=== PATIENT | male | born 1990 | race Caucasian/White ===

== ENCOUNTER 2016-09-15 16:51 | Emergency (ER) | payer SELFPAY ==
[~2016-09-15] VITALS: Ht 177.8 cm; Wt 100.0 kg
[2016-09-15 16:51] VITALS: BP 155/92; PULSE 109; RESP 18; TEMP 97.9; O2SAT 96
--- NOTE | 2016-09-15 19:36 | PD ---
HPI Chief Complaint: Pain: Acute or Chronic Time Seen by Provider: 19:33 Travel History International Travel<30 days: No Contact w/Intl Traveler<30days: No Traveled to known affect area: No History of Present Illness HPI Patient comes in complaining of right-sided low back pain that began approximately a week ago while sweeping at work and bending over. Patient denies any direct trauma. Patient states he felt it a little bit better however today when he is at work it again began bothering him after he bent over. Patient denies any loss or change in bowel or bladder, fevers, IV drug use, numbness or tingling anywhere, abdominal pain, nausea, vomiting, or previous episodes like this. He states he took some ibuprofen earlier today that helped some. Pain is worse certain movement. Pain is sharp stabbing-like nature of right lower back that radiates superiorly. PFSH Past Medical History Medical History: Denies Significant Hx Diminished Hearing: No Tetanus Vaccination: < 5 Years Influenza Vaccination: No Past Surgical History Surgical History: No Previous Surgery Social History Alcohol Use: Yes (SOCIALLY) Tobacco Use: Yes (1/2PPD) Substance Use: No Allergies-Medications (Allergen,Severity, Reaction): Coded Allergies: Codeine (Verified Allergy, Mild, "FAMILY HX OF ALLERGY", 09/15/16) Reported Meds & Prescriptions Reported Meds & Active Scripts Active Flexeril (Cyclobenzaprine HCl) 10 Mg Tab 10 Mg PO Q8HR PRN Naprosyn (Naproxen) 500 Mg Tab 500 Mg PO Q12HR PRN Review of Systems Except as stated in HPI: all other systems reviewed are Neg Physical Exam Narrative GENERAL: Well-developed, overly nourished, in no acute distress, and non-ill appearing. SKIN: Warm and dry. HEAD: Atraumatic. Normocephalic. EYES: Pupils equal and round. EOMI. No scleral icterus. No injection or drainage. ENT: No nasal bleeding or discharge. Mucous membranes pink and moist. NECK: Trachea midline. Supple. No nuclear rigidity. CARDIOVASCULAR: Dorsal pulses 2+, intact, and equal bilaterally. No pedal edema. RESPIRATORY: No accessory muscle use. No respiratory distress. MUSCULOSKELETAL: No obvious deformities. No clubbing. No cyanosis. No edema. Full range of motion. No tenderness or crepitus or midline lumbar spine. Patient reports tenderness to palpation over right lateral lumbar muscles. Straight leg test negative bilaterally. Sensation intact over bilateral first web space lower extremities. NEUROLOGICAL: Awake and alert. No obvious cranial nerve deficits. Motor grossly within normal limits. Normal speech. PSYCHIATRIC: Appropriate mood and affect; insight and judgment normal. Data Data Last Documented VS Vital Signs Date Time Temp Pulse Resp B/P Pulse Ox O2 Delivery O2 Flow Rate FiO2 09/15/16 19:26 14 09/15/16 16:51 97.9 109 155/92 96 Room Air MDM Medical Decision Making Medical Screen Exam Complete: Yes Emergency Medical Condition: Yes Differential Diagnosis Fracture, strain, contusion, other Narrative Course The patient presented complaining of back pain. There was no history of recent fall or blunt trauma. However, history elicited activity likely causing muscular strain and injury. There was no evidence to support genitourinary etiology. There is also no evidence to suggest vascular pathology such as AAA dissection. No fevers or other evidence to suspect infectious processes, abscess , osteomyelitis etc. The patients neurological exam is normal with normal motor and sensory. There is no saddle paresthesias reported and no bowel or bladder incontinence or retention. I suspect the pain is mechanical in nature. Clinical suspicion, plan of care and management was discussed with the patient. The patient was instructed to follow up with their health care provider. The patient was also instructed to return if the pain worsened, changed, or developed weakness or bowel or bladder trouble. The patient agreed with plan. Patient in no obvious distress upon re-evaluation. Patient was asked if they wanted to speak to my attending, which the patient did not wish to do at this time. Any questions/concerns in reference to patient diagnosis/condition discussed and clarified prior to patient's discharge. Reinforced sheer importance of close follow up with patient's primary physician or primary care clinic. Instructed patient to return to ED immediately, if symptoms return/ worsen. Pt showed understanding of above instructions. Further instructions and recommendations were detailed in discharge paperwork. Pt ambulated without difficulty out of ED at discharge. Diagnosis Primary Impression: Low back strain Qualified Code: S39.012A - Low back strain, initial encounter Referrals: Sigifredo Syed MD Patient Instructions: General Instructions, Low Back Strain (ED) Additional Instructions: Follow-up with your primary care physician and/or orthopedics in 3-5 days for reevaluation. Take all medication as prescribed. Return to the emergency department if symptoms get worse. Med/Other Pt SpecificInfo: Prescription(s) given Scripts Cyclobenzaprine (Flexeril)10 Mg Tab10 Mg PO Q8HR PRN (MUSCLE PAIN) #15 TAB Ref 0 Prov:Britney Cunningham MD 09/15/16 Naproxen (Naprosyn)500 Mg [id number] Mg PO Q12HR PRN (PAIN SCALE 1 TO 10) #14 TAB Ref 0 Prov:Britney Cunningham MD 09/15/16 Disposition: 01 DISCHARGE HOME Condition: Stable Josue Romo Sep 15, 2016 19:36
[2016-09-15] MEDS ORDERED: CYCL1TAB29 PO (19:37)
[2016-09-15] MEDS ORDERED: NAPR500 PO (19:37)
== END 2016-09-15 19:45 | disposition home or self-care (01) ==
LOC: NEPB 16:51
DX: S39.012A Strain of muscle, fascia and tendon of lower back, initial encounter (principal); F17.210 Nicotine dependence, cigarettes, uncomplicated; X50.3XXA Overexertion from repetitive movements, initial encounter; Y93.E9 Activity, other interior property and clothing maintenance; Y92.9 Unspecified place or not applicable
CPT/HCPCS: 99283

== ENCOUNTER 2016-10-12 06:18 | Inpatient (IN) | payer MEDICAID, OTHER ==
[2016-10-12] VITALS (7 sets, daily range): BP systolic 112–144; BP diastolic 53–77; PULSE 85–141; RESP 18–20; TEMP 97–98.2; O2SAT 96–98
[~2016-10-12] VITALS: Ht 177.8 cm; Wt 108.0 kg
[~2016-10-12 06:18] MED LIST: CYCL1TAB29 PO; NAPR500 PO
[2016-10-12] MEDS ORDERED: PANTOPRAZOLE SODIUM 40 MG VIAL IVP ONE (06:45)
[2016-10-12] MEDS ORDERED: HYDROmorphone HCL PF 1 MG/ML VIAL IVS ONE (06:45)
[2016-10-12] MEDS ORDERED: ONDANSETRON HCL 4 MG/2 ML VIAL IVP ONE (06:45)
[2016-10-12] MEDS ORDERED: SODIUM CHLOR 0.9% 1000 ML INJ 1,000 ML IV SCH (06:45)
--- NOTE | 2016-10-12 06:50 | PD ---
HPI Chief Complaint: GI Complaint Time Seen by Provider: 06:43 Travel History International Travel<30 days: No Contact w/Intl Traveler<30days: No Traveled to known affect area: No History of Present Illness HPI 26-year-old male complains of abdominal pain with nausea vomiting. Patient states the symptoms started 24 hours ago. Patient states the pain is cramping pain mostly severe around the right lower quadrant of the abdomen. Patient denies any pain radiation. Patient denies any back pain. Patient denies any coughing congestion. Patient denies any fever chills. Patient denies any dysuria or frequency. On a scale of 1-10 the pain is a 7. PFSH Past Medical History Medical History: Denies Significant Hx Diminished Hearing: No Tetanus Vaccination: < 5 Years Influenza Vaccination: No Social History Alcohol Use: Yes (SOCIALLY) Tobacco Use: Yes (2 CIG PER DAY) Substance Use: No Allergies-Medications (Allergen,Severity, Reaction): Coded Allergies: Codeine (Verified Allergy, Mild, "FAMILY HX OF ALLERGY", 10/12/16) Reported Meds & Prescriptions Reported Meds & Active Scripts Active Review of Systems General / Constitutional: No: Fever Eyes: No: Visual changes HENT: No: Headaches Cardiovascular: No: Chest Pain or Discomfort Respiratory: No: Shortness of Breath Gastrointestinal: Positive: Nausea, Vomiting, Abdominal Pain Genitourinary: No: Dysuria Musculoskeletal: No: Pain Skin: No Rash Neurologic: No: Weakness Psychiatric: No: Depression Endocrine: No: Polydipsia Hematologic/Lymphatic: No: Easy Bruising Physical Exam Narrative GENERAL: Well-nourished, well-developed patient. SKIN: Focused skin assessment warm/dry. HEAD: Normocephalic. EYES: No scleral icterus. No injection or drainage. NECK: Supple, trachea midline. No JVD or lymphadenopathy. CARDIOVASCULAR: Regular rate and rhythm without murmurs, gallops, or rubs. RESPIRATORY: Breath sounds equal bilaterally. No accessory muscle use. GASTROINTESTINAL: Abdomen soft, nondistended. Patient has moderate tenderness on palpation right lower quadrant of the abdomen. No rebound tenderness. No mass. MUSCULOSKELETAL: No cyanosis, or edema. BACK: Nontender without obvious deformity. No CVA tenderness. Neurologic exam normal. Data Data Last Documented VS Vital Signs Date Time Temp Pulse Resp B/P Pulse Ox O2 Delivery O2 Flow Rate FiO2 10/12/16 06:19 97.9 141 18 129/75 97 Room Air MDM Medical Decision Making Medical Screen Exam Complete: Yes Emergency Medical Condition: Yes Differential Diagnosis Differential diagnosis including gastroenteritis, gastritis, PUD, pancreatitis, cholecystitis, colitis, UTI, pyelonephritis, nephrolithiasis. Narrative Course 26-year-old male with right low quadrant abdominal pain, nausea vomiting. Normal saline solution 1 L IV bolus. Dilaudid 0.5 mg IV. Zofran 4 mg IV. Protonix 40 mg IV. Antonio Palomares MD Oct 12, 2016 06:50
[2016-10-12 07:09] LABS: AUTOMATED NEUTROPHIL # 6.8 TH/MM3 (1.8-7.7); BASOPHIL % 0.1 % (0.0-2.0); EOSINOPHIL % 0.1 % (0.0-4.0); HEMATOCRIT 44.8 % (39.0-51.0); HEMO FLAGS DIFF FINAL; LYMPH % 4.8 % (9.0-44.0); LYMPHOCYTE # 0.3 TH/MM3 (1.0-4.8); MEAN CORPUSCULAR HEMOGLOBIN 30.9 PG (27.0-34.0); MEAN CORPUSCULAR HGB CONC 35.5 % (32.0-36.0); PLATELET COUNT 192 TH/MM3 (150-450); RED BLOOD COUNT 5.16 MIL/MM3 (4.50-5.90); RED CELL DISTRIBUTION WIDTH 12.3 % (11.6-17.2); WHITE BLOOD COUNT 7.2 TH/MM3 (4.0-11.0)
[2016-10-12 07:22] LABS: APTT (PATIENT) 23.2 SEC (24.3-30.1); INTERNATIONAL NORMALIZED RATIO 1.1 RATIO; PROTHROMBIN TIME - PATIENT 11.8 SEC (9.8-11.6)
[2016-10-12 07:35] LABS: ALT (GPT) 29 U/L (12-78); ANION GAP 8 MEQ/L (5-15); AST (GOT) 12 U/L (15-37); BICARBONATE 27.7 MEQ/L (21.0-32.0); BLOOD UREA NITROGEN 11 MG/DL (7-18); CHLORIDE 102 MEQ/L (98-107); GLOMERULAR FILTRATION RATE 95 ML/MIN (>89); POTASSIUM 3.7 MEQ/L (3.5-5.1); SODIUM (NA) 138 MEQ/L (136-145)
[2016-10-12 07:37] LABS: ALKALINE PHOSPHATASE 64 U/L (45-117); TOTAL BILIRUBIN ADULT 0.9 MG/DL (0.2-1.0)
[2016-10-12] MEDS ORDERED: IOHEXOL 350 MG/ML 10 ML VIAL (for RAD DIAG) IV ONE (07:39)
--- NOTE | 2016-10-12 07:57 | RADRPT ---
EXAM DATE/TIME: 10/12/2016 07:37 [facility] COMPARISON: No previous studies available for comparison. INDICATIONS : Right side abdominal pain and vomiting IV CONTRAST: 100 cc Omnipaque 350 (iohexol) IV ORAL CONTRAST: No oral contrast ingested. RADIATION DOSE: 14.28 CTDIvol (mGy) MEDICAL HISTORY : None SURGICAL HISTORY : None. ENCOUNTER: Initial ACUITY: 1 day PAIN SCALE: 6/10 LOCATION: Right lower quadrant TECHNIQUE: Volumetric scanning of the abdomen and pelvis was performed. Using automated exposure control and ad justment of the mA and/or kV according to patient size, radiation dose was kept as low as reasonably achievable to obtain optimal diagnostic quality images. FINDINGS: LOWER LUNGS: The visualized lower lungs are clear. LIVER: Homogeneous density without lesion. There is no dilation of the biliary tree. No calcified gallston es. SPLEEN: Normal size without lesion. PANCREAS: Within normal limits. KIDNEYS: Normal in size and shape. There is no mass, stone or hydronephrosis. ADRENAL GLANDS: Within normal limits. VASCULAR: There is no aortic aneurysm. BOWEL/MESENTERY: The bowel gas pattern is within normal limits. There is dilatation of the appendix at 1.2 cm. There i s thickening of the wall the appendix was some surrounding inflammatory changes characteristic of acu te appendicitis. No free fluid or loculated fluid collections are seen at this time to indicate an ab scess. No free air is seen. The colon is unremarkable. There is stool throughout the colon. ABDOMINAL WALL: Within normal limits. RETROPERITONEUM: There is no lymphadenopathy. BLADDER: No wall thickening or mass. REPRODUCTIVE: Within normal limits. INGUINAL: There is no lymphadenopathy or hernia. MUSCULOSKELETAL: Within normal limits for patient age. CONCLUSION: Acute appendicitis. Hardik Benito MD on October 12, 2016 at 7:50 Board Certified Radiologist. This report was verified electronically.
--- NOTE | 2016-10-12 08:17 | PD ---
Physical Exam Date Seen by Provider: Oct 12, 2016 Time Seen by Provider: 08:15 Narrative 26-year-old male came to the emergency room with history of lower abdominal pain but right more than left side. This has started since 3 this morning. He was seen by the previous ER physician who ordered labs and CT scan. Case was signed out to me to follow-up on the lab and the CAT scan. White count was within normal limit but with significant left shift. Patient appears to be in moderate distress with tachycardia. He is getting 1 L of IV fluid bolus. I'll order a second liter. The CT scan report is back which is read as acute appendicitis. I put a call out for the general surgeon on-call. Awaiting for him to call back. Patient will be kept nothing by mouth. Patient has been informed regarding his test results and the future course. I also covered him with 2 g of IV cefepime. Data Data Last Documented VS Vital Signs Date Time Temp Pulse Resp B/P Pulse Ox O2 Delivery O2 Flow Rate FiO2 10/12/16 07:55 138 18 144/77 97 Nasal Cannula 2 Orders Complete Blood Count With Diff (10/12/16 06:45) Comprehensive Metabolic Panel (10/12/16 06:45) Lipase (10/12/16 06:45) Prothrombin Time / Inr (Pt) (10/12/16 06:45) Act Partial Throm Time (Ptt) (10/12/16 06:45) Urinalysis - C+S If Indicated (10/12/16 06:45) Iv Access Insert/Monitor (10/12/16 06:45) Ecg Monitoring (10/12/16 06:45) Oximetry (10/12/16 06:45) Ondansetron Inj (Zofran Inj) (10/12/16 06:45) Pantoprazole Inj (Protonix Inj) (10/12/16 06:45) Sodium Chlor 0.9% 1000 Ml Inj (Ns 1000 M (10/12/16 06:45) Hydromorphone Pf Inj (Dilaudid Pf Inj) (10/12/16 06:45) Ct Abd/Pel W Iv Contrast(Rout) (10/12/16 07:25) Iohexol 350 Inj (Omnipaque 350 Inj) (10/12/16 07:39) Sodium Chlor 0.9% 1000 Ml Inj (Ns 1000 M (10/12/16 08:30) Cefepime Inj (Maxipime Inj) (10/12/16 08:30) NPO (10/12/16 08:17) Blood Culture (10/12/16 08:18) Metronidazole 500 Mg Inj (Flagyl 500 Mg (10/12/16 08:45) Admit Order (Ed Use Only) (10/12/16 08:42) Labs Laboratory Tests Test 10/12/16 10/12/16 06:50 08:08 White Blood Count 7.2 TH/MM3 Red Blood Count 5.16 MIL/MM3 Hemoglobin 15.9 GM/DL Hematocrit 44.8 % Mean Corpuscular Volume 87.0 FL Mean Corpuscular Hemoglobin 30.9 PG Mean Corpuscular Hemoglobin 35.5 % Concent Red Cell Distribution Width 12.3 % Platelet Count 192 TH/MM3 Mean Platelet Volume 8.3 FL Neutrophils (%) (Auto) 94.0 % Lymphocytes (%) (Auto) 4.8 % Monocytes (%) (Auto) 1.0 % Eosinophils (%) (Auto) 0.1 % Basophils (%) (Auto) 0.1 % Neutrophils # (Auto) 6.8 TH/MM3 Lymphocytes # (Auto) 0.3 TH/MM3 Monocytes # (Auto) 0.1 TH/MM3 Eosinophils # (Auto) 0.0 TH/MM3 Basophils # (Auto) 0.0 TH/MM3 CBC Comment DIFF FINAL Differential Comment Prothrombin Time 11.8 SEC Prothromb Time International 1.1 RATIO Ratio Activated Partial 23.2 SEC Thromboplast Time Sodium Level 138 MEQ/L Potassium Level 3.7 MEQ/L Chloride Level 102 MEQ/L Carbon Dioxide Level 27.7 MEQ/L Anion Gap 8 MEQ/L Blood Urea Nitrogen 11 MG/DL Creatinine 0.97 MG/DL Estimat Glomerular Filtration 95 ML/MIN Rate Random Glucose 132 MG/DL Calcium Level 9.6 MG/DL Total Bilirubin 0.9 MG/DL Aspartate Amino Transf 12 U/L (AST/SGOT) Alanine Aminotransferase 29 U/L (ALT/SGPT) Alkaline Phosphatase 64 U/L Total Protein 7.6 GM/DL Albumin 4.1 GM/DL Lipase 107 U/L Urine Color YELLOW Urine Turbidity CLEAR Urine pH 5.5 Urine Specific [place] 1.050 Urine Protein TRACE mg/dL Urine Glucose (UA) NEG mg/dL Urine Ketones TRACE mg/dL Urine Occult Blood NEG Urine Nitrite NEG Urine Bilirubin NEG Urine Urobilinogen LESS THAN 2.0 MG/DL Urine Leukocyte Esterase NEG Urine RBC LESS THAN 1 /hpf Urine WBC LESS THAN 1 /hpf Urine Mucus FEW /lpf Microscopic Urinalysis Comment CULT NOT INDICATED MDM Supervised Visit with JADA: No Narrative Course 8:30 AM I spoke with Dr. Ferreira from general surgery who has accepted the patient. He will take the patient to the operating room. Physician Communication Physician Communication Dr. Ferreira Diagnosis Primary Impression: Acute appendicitis Qualified Code: K35.89 - Other acute appendicitis Additional Impressions: Tachycardia Dehydration Admitting Information Admitting Physician Requests: Admit Scripts Ciprofloxacin (Cipro)500 Mg [id number] Mg PO BID #10 TAB Ref 0 Prov:Toño Ferreira MD 10/13/16 Metronidazole (Flagyl)500 Mg [id number] Mg PO TID #15 TAB Ref 0 Prov:Toño Ferreira MD 10/13/16 Oxycodone-Acetaminophen 5-325 mg Tab1-2 Tab PO Q4H PRN (PAIN) #30 TAB Ref 0 Prov:Toño Ferreira MD 10/12/16 Alex Garduno MD Oct 12, 2016 08:17
[2016-10-12 08:28] LABS: BLOOD, URINE NEG (NEG); COMMENT (UR) CULT NOT INDICATED; CULTURE IF INDICATED CULT NOT INDICATED; GLUCOSE,URINE NEG (NEG); KETONE, URINE TRACE mg/dL (NEG); MUCUS URINE FEW /lpf (OCC); NITRITE,URINE NEG (NEG); PH, URINE 5.5 (5.0-8.5); URINE COLOR YELLOW (YELLW/STRAW)
[2016-10-12] MEDS ORDERED: SODIUM CHLOR 0.9% 1000 ML INJ 1,000 ML IV ONE ×2 (08:30→09:00)
[2016-10-12] MEDS ORDERED: CEFEPIME INJ 2,000 MG in SODIUM CHLORIDE 0.9% INJ 100 ML IV ONE (08:30)
[2016-10-12] MEDS ORDERED: metroNIDAZOLE 500 MG INJ 100 ML IV ONE (08:45)
[2016-10-12] MEDS ORDERED: MORPHINE SULFATE 4 MG/ML INJ IV PUSH ONE (09:00)
--- NOTE | 2016-10-12 09:27 | HHI.HP ---
HPI Service General Surgery Primary Care Physician No Primary Care Physician Admission Diagnosis acute appendicitis, tachycardia Chief Complaint: abdominal pain, vomiting History of Present Illness 26-year-old male presents with 36 hours of vomiting and awoke last night with severe right lower quadrant abdominal pain. He has soreness in his back on both sides. He has been significantly tachycardic in the emergency department. He had a normal white blood count but with 94% left shift. CT abdomen and pelvis was consistent with acute appendicitis. No previous abdominal surgeries. Review of Systems Constitutional: DENIES: Fever, Chills Eyes: DENIES: Eye inflammation, Eye pain Respiratory: DENIES: Cough, Wheezing Cardiovascular: DENIES: Chest pain, Syncope Gastrointestinal: COMPLAINS OF: Abdominal pain, Vomiting Musculoskeletal: DENIES: Joint Swelling, Back pain Integumentary: DENIES: Pruritus, Rash Past Family Social History Past Medical History None Past Surgical History Right wrist Reported Medications Reported Meds & Active Scripts Active Allergies: Coded Allergies: Codeine (Verified Allergy, Mild, "FAMILY HX OF ALLERGY", 10/12/16) Active Ordered Medications Current Medications Medications (Trade) Dose Ordered Sig/Yolanda Route Start Time Stop Time Status Last Admin Sodium Chloride 1,000 ml @ 999 mls/hr BOLUS ONCE IV 10/12/16 08:30 10/12/16 09:30 10/12/16 08:47 Metronidazole 100 ml @ 100 mls/hr ONCE ONCE IV 10/12/16 08:45 10/12/16 09:44 10/12/16 09:05 (NS 1000 ml Inj) 1,000 ml @ 999 mls/hr BOLUS ONCE IV 10/12/16 09:00 10/12/16 10:00 Family History Noncontributory Social History He smokes a couple of cigarettes occasionally. He smokes regularly until 1 month ago. No alcohol use. He has a baby at home. Physical Exam Vital Signs Vital Signs Date Time Temp Pulse Resp B/P Pulse Ox O2 Delivery O2 Flow Rate FiO2 10/12/16 08:59 112 20 140/74 98 Nasal Cannula 2 10/12/16 07:55 138 18 144/77 97 Nasal Cannula 2 10/12/16 07:06 18 10/12/16 06:19 97.9 141 18 129/75 97 Room Air Physical Exam GENERAL: Awake and alert. No acute distress but uncomfortable. Cooperative. HEAD: Normocephalic. Atraumatic. EYES: Pupils equal round and reactive to light bilaterally. No scleral icterus. CHEST: Lungs clear to auscultation bilaterally with no wheezing or rhonchi. No respiratory distress. CARDIOVASCULAR: Sinus tachycardia ABDOMEN: Positive Rovsing sign. Nondistended. Mild tenderness to palpation in the left lower quadrant and right upper quadrant and severe tenderness with rebound in the right lower quadrant at McBurney's point. EXTREMITIES: No cyanosis or edema. SKIN: Warm, dry, nonjaundiced. Laboratory Laboratory Tests Test 10/12/16 10/12/16 06:50 08:08 White Blood Count 7.2 Red Blood Count 5.16 Hemoglobin 15.9 Hematocrit 44.8 Mean Corpuscular Volume 87.0 Mean Corpuscular Hemoglobin 30.9 Mean Corpuscular Hemoglobin 35.5 Concent Red Cell Distribution Width 12.3 Platelet Count 192 Mean Platelet Volume 8.3 Neutrophils (%) (Auto) 94.0 Lymphocytes (%) (Auto) 4.8 Monocytes (%) (Auto) 1.0 Eosinophils (%) (Auto) 0.1 Basophils (%) (Auto) 0.1 Neutrophils # (Auto) 6.8 Lymphocytes # (Auto) 0.3 Monocytes # (Auto) 0.1 Eosinophils # (Auto) 0.0 Basophils # (Auto) 0.0 CBC Comment DIFF FINAL Differential Comment Prothrombin Time 11.8 Prothromb Time International 1.1 Ratio Activated Partial 23.2 Thromboplast Time Sodium Level 138 Potassium Level 3.7 Chloride Level 102 Carbon Dioxide Level 27.7 Anion Gap 8 Blood Urea Nitrogen 11 Creatinine 0.97 Estimat Glomerular Filtration 95 Rate Random Glucose 132 Calcium Level 9.6 Total Bilirubin 0.9 Aspartate Amino Transf 12 (AST/SGOT) Alanine Aminotransferase 29 (ALT/SGPT) Alkaline Phosphatase 64 Total Protein 7.6 Albumin 4.1 Lipase 107 Urine Color YELLOW Urine Turbidity CLEAR Urine pH 5.5 Urine Specific [place] 1.050 Urine Protein TRACE Urine Glucose (UA) NEG Urine Ketones TRACE Urine Occult Blood NEG Urine Nitrite NEG Urine Bilirubin NEG Urine Urobilinogen LESS THAN 2.0 Urine Leukocyte Esterase NEG Urine RBC LESS THAN 1 Urine WBC LESS THAN 1 Urine Mucus FEW Microscopic Urinalysis Comment CULT NOT INDICATED Date/Time Procedure Status Source Growth 10/12/16 08:52 Aerobic Blood Culture Received Blood Peripheral Pending 10/12/16 08:52 Anaerobic Blood Culture Received Blood Peripheral Pending Result Diagram: 10/12/16 0650 10/12/16 0650 Imaging Last Impressions Abdomen/Pelvis CT 10/12/16 0725 Signed Impressions: Service Date/Time: September 07:37 - CONCLUSION: Acute appendicitis. Hardik Benito MD Assessment and Plan Assessment and Plan 26-year-old male with an evaluation consistent with acute appendicitis. He is tachycardic and has received 1 L bolus. He received cefepime and Flagyl. I recommend proceed with laparoscopic possible open appendectomy. I discussed details and risks with the patient and he desires to proceed. Toño Ferreira MD Oct 12, 2016 09:27
[2016-10-12] MEDS ORDERED: BUPIVACAINE/EPINEPHRINE 0.25% PF 30 ML VIAL ONE (09:53)
[2016-10-12] MEDS ORDERED: fentaNYL CITRATE 250 MCG/5 ML AMP ONE (09:59)
[2016-10-12] MEDS ORDERED: ACETAMINOPHEN 1000 MG/100 ML VIAL IV ONE (09:59)
[2016-10-12] MEDS ORDERED: FAMOTIDINE 20 MG/2 ML VIAL ONE (10:02)
[2016-10-12] MEDS ORDERED: MIDAZOLAM HCL 2 MG/2 ML VIAL ONE (10:02)
[2016-10-12] MEDS ORDERED: DO NOT ADM ANY ANTICOAGULANT DRUGS PRN (11:14)
[2016-10-12] MEDS ORDERED: OXYC1TAB63 PO (11:14)
[2016-10-12] MEDS ORDERED: NALOXONE HCL 0.4 MG/ML AMP IV PRN (11:15)
[2016-10-12] MEDS ORDERED: diphenhydrAMINE HCL 25 MG CAP PO PRN (11:15)
[2016-10-12] MEDS ORDERED: Post-op Orders (for Pharmacy) MISC XX ONE (11:15)
[2016-10-12] MEDS ORDERED: SODIUM CHLORIDE 0.9% FLUSH 10 ML FLUSH IV FLUSH PRN (11:15)
[2016-10-12] MEDS ORDERED: MORPHINE SULFATE 4 MG/ML INJ IV PRN (11:15)
[2016-10-12] MEDS ORDERED: oxyCODONE/ACETAMINOPHEN 5 MG/325 MG TAB PO PRN (11:15)
--- NOTE | 2016-10-12 11:16 | PD.OP ---
cc: Toño Ferreira MD Operative Report Date of Surgery: Oct 12, 2016 Preoperative Diagnosis: (1) Acute appendicitis Postoperative Diagnosis: (1) Acute appendicitis Procedure: Laparoscopic appendectomy Anesthesia: GETA Surgeon: Toño Ferreira Best Worker(s): Elis CRAFT Operation and Findings: EBL: 5 cc Complications: None apparent Operative findings: Gangrenous appenditicitis. Procedure in detail: The patient was taken to the operating room placed in the supine position with left arm tucked. General endotracheal anesthesia was induced and the abdomen was prepped and draped in usual sterile fashion. Surgical timeout was performed to verify correct patient procedure and site. Perioperative antibiotics were administered as necessary. Local anesthetic was injected in the skin and subcutaneous tissue at the left lower quadrant and a 5 mm incision made. Using the 5 mm Optiview trocar with laparoscope the abdomen was directly entered. The abdomen was then insufflated to 15 mmHg with CO2 gas which the patient tolerated well. The patient was then placed in Trendelenburg position and turned slightly to the left. A 12 mm port was placed under laparoscopic visualization in the suprapubic position and a 5 mm port in the infra umbilical area. Attention was turned to the right lower quadrant and the appendix was gangrenous without obvious perforation. The mesoappendix was taken down with the Harmonic scalpel. Two #1 PDS Endoloops were placed at the base the appendix which was healthy-appearing and the appendix transected with Harmonic scalpel. It was then removed using an Endo Catch bag. The appendiceal stump was intact with no leakage. The right lower quadrant pelvis were irrigated and suctioned. There was no purulent fluid identified in the abdomen was allowed to desufflate. The fascia at the 12 mm port site was closed with a single 0 Vicryl suture. Skin closed with subcuticular Monocryl as well as Dermabond. The patient tolerated the procedure well was extubated and taken to PACU in stable condition. Toño Ferreira MD Oct 12, 2016 11:16
[2016-10-12] MEDS ORDERED: *MEPERIDINE 25 MG INJ VIAL PERIprocedural Use ONLY ONE (11:28)
[2016-10-12] MEDS ORDERED: *morphine SULFATE 8 MG/ML PERIprocedure ONLY ONE ×2 (11:55→12:08)
[2016-10-12] MEDS: LACTATED RINGER'S 1000 ML INJ 1,000 ML IV SCH ×2 (12:00→16:41)
[2016-10-12] MEDS ORDERED: PROPOFOL 200 MG/20 ML AMP IV ONE (12:00)
[2016-10-12] MEDS ORDERED: LACTATED RINGER'S 1000 ML INJ 1,000 ML IV ONE (12:00)
[2016-10-12] MEDS ORDERED: PHENYLEPH/NS 1000 MCG/10 ML SYR IV ONE (12:00)
[2016-10-12] MEDS ORDERED: ONDANSETRON HCL 4 MG/2 ML VIAL IV PUSH ONE (12:00)
[2016-10-12] MEDS ORDERED: NEOSTIGMINE 3 MG/3 ML SYR IV ONE (12:00)
[2016-10-12] MEDS: metroNIDAZOLE 500 MG INJ 100 ML IV SCH (16:40)
[2016-10-12] MEDS: SODIUM CHLORIDE 0.9% FLUSH 10 ML FLUSH IV FLUSH SCH (19:55)
[2016-10-13] VITALS (9 sets, daily range): BP systolic 119–132; BP diastolic 58–80; PULSE 60–132; RESP 16–20; TEMP 97.9–102.4; O2SAT 93–98
[2016-10-13] MEDS ORDERED: LEVOFLOXACIN 750 MG/DEXTROSE 150 ML IV ONE (00:30)
[2016-10-13] MEDS ORDERED: LACTATED RINGER'S 1000 ML INJ 1,000 ML IV ONE (00:30)
[2016-10-13] MEDS: ACETAMINOPHEN 325 MG TAB PO PRN ×2 (00:36→12:24)
[2016-10-13] MEDS: oxyCODONE/ACETAMINOPHEN 10 MG/325 MG TAB PO PRN ×3 (01:19→18:44)
[2016-10-13] MEDS: LACTATED RINGER'S 1000 ML INJ 1,000 ML IV SCH ×3 (01:20→16:15)
[2016-10-13] MEDS: metroNIDAZOLE 500 MG INJ 100 ML IV SCH ×4 (01:23→20:00)
[2016-10-13] MEDS: SODIUM CHLORIDE 0.9% FLUSH 10 ML FLUSH IV FLUSH SCH ×2 (08:14→19:59)
--- NOTE | 2016-10-13 11:30 | HHI.PR ---
Subjective Subjective Notes T 102 overnight. He has eaten regular food. Pain pretty well controlled. Objective Vitals/I&O Vital Signs Date Time Temp Pulse Resp B/P Pulse Ox O2 Delivery O2 Flow Rate FiO2 10/13/16 08:47 93 10/13/16 08:00 98.7 100 17 126/65 10/12/16 19:32 21 10/12/16 13:00 Room Air 10/12/16 12:00 2 Labs Date/Time Procedure Status Source Growth 10/12/16 08:52 Aerobic Blood Culture - Preliminary Resulted Blood Peripheral NO GROWTH IN 1 DAY 10/12/16 08:52 Anaerobic Blood Culture - Preliminary Resulted Gram Positive Cocci Radiology Last Impressions Abdomen/Pelvis CT 10/12/16 0790 Signed Impressions: Service Date/Time: September 07:37 - CONCLUSION: Acute appendicitis. Hardik Benito MD Narrative Exam NAD Abd: soft, incisional ttp, inc c/d/i A/P Assessment and Plan 26 yo M POD 1 s/p lap appy for gangrenous appendicitis. Persistent fevers overnight. Blood cxs positive. IV levaquin/flagyl. Regular diet Ambulate Anticipate d/c home tomorrow with antibiotics. Toño Ferreira MD Oct 13, 2016 11:30
[2016-10-13] MEDS ORDERED: METR-1 PO (11:31)
[2016-10-13] MEDS ORDERED: CIPR-9 PO (11:31)
[2016-10-13 21:11] LABS: MEAN CORPUSCULAR HGB CONC 36.1 % (32.0-36.0)
[2016-10-14] VITALS (7 sets, daily range): BP systolic 125–137; BP diastolic 73–84; PULSE 74–85; RESP 16–20; TEMP 96.9–99.4; O2SAT 95–98
[2016-10-14] MEDS: LEVOFLOXACIN 750 MG/DEXTROSE 150 ML IV SCH (01:33)
[2016-10-14] MEDS: oxyCODONE/ACETAMINOPHEN 10 MG/325 MG TAB PO PRN ×4 (01:33→20:30)
[2016-10-14] MEDS: LACTATED RINGER'S 1000 ML INJ 1,000 ML IV SCH ×3 (02:15→22:15)
[2016-10-14] MEDS: metroNIDAZOLE 500 MG INJ 100 ML IV SCH ×4 (03:13→20:06)
[2016-10-14 04:42] LABS: BASOPHIL % 0.1 % (0.0-2.0); EOSINOPHIL # 0.2 TH/MM3 (0-0.4); EOSINOPHIL % 3.2 % (0.0-4.0); HEMATOCRIT 36.7 % (39.0-51.0); LYMPH % 5.3 % (9.0-44.0); LYMPHOCYTE # 0.4 TH/MM3 (1.0-4.8); MEAN CELL VOLUME 87.3 FL (80.0-100.0); MEAN CORPUSCULAR HEMOGLOBIN 31.5 PG (27.0-34.0); NEUT % 78.4 % (16.0-70.0); PLATELET COUNT 120 TH/MM3 (150-450); RED BLOOD COUNT 4.21 MIL/MM3 (4.50-5.90); RED CELL DISTRIBUTION WIDTH 12.4 % (11.6-17.2); WHITE BLOOD COUNT 7.7 TH/MM3 (4.0-11.0)
[2016-10-14 04:54] LABS: HEMO FLAGS AUTO DIFF
[2016-10-14 08:47] LABS: PLATELET ESTIMATE SMEAR LOW (NORMAL); PLATELET MORPHOLOGY NORMAL (NORMAL); SCAN/DIFF AUTO DIFF CONFIRMED
[2016-10-14] MEDS: SODIUM CHLORIDE 0.9% FLUSH 10 ML FLUSH IV FLUSH SCH ×2 (08:59→21:00)
[2016-10-14] MEDS: ONDANSETRON HCL 4 MG/2 ML VIAL IV PRN (09:11)
--- NOTE | 2016-10-14 14:53 | HHI.PR ---
Subjective Subjective Notes Patient states that he's been out of bed walking with minimal complaints. His pain is fairly well controlled although he states that the lower abdominal incision has become more red and is more tender. He has passed little in the way of flatus and has not had a bowel movement yet. Objective Vitals/I&O Vital Signs Date Time Temp Pulse Resp B/P Pulse Ox O2 Delivery O2 Flow Rate FiO2 10/14/16 12:00 96.9 74 16 125/80 97 10/12/16 19:32 21 10/12/16 13:00 Room Air 10/12/16 12:00 2 Labs Laboratory Tests Test 10/14/16 03:58 White Blood Count 7.7 Red Blood Count 4.21 Hemoglobin 13.2 Hematocrit 36.7 Mean Corpuscular Volume 87.3 Mean Corpuscular Hemoglobin 31.5 Mean Corpuscular Hemoglobin 36.1 Concent Red Cell Distribution Width 12.4 Platelet Count 120 Mean Platelet Volume 8.5 Neutrophils (%) (Auto) 78.4 Lymphocytes (%) (Auto) 5.3 Monocytes (%) (Auto) 13.0 Eosinophils (%) (Auto) 3.2 Basophils (%) (Auto) 0.1 Neutrophils # (Auto) 6.0 Lymphocytes # (Auto) 0.4 Monocytes # (Auto) 1.0 Eosinophils # (Auto) 0.2 Basophils # (Auto) 0.0 CBC Comment AUTO DIFF Differential Comment AUTO DIFF CONFIRMED Platelet Estimate LOW Platelet Morphology Comment NORMAL Date/Time Procedure Status Source Growth 10/12/16 08:52 Aerobic Blood Culture - Preliminary Resulted Blood Peripheral Gram Positive Cocci 10/12/16 08:52 Anaerobic Blood Culture - Preliminary Resulted Strep Anginosus/Milleri Radiology Last Impressions Abdomen/Pelvis CT 10/12/16 0166 Signed Impressions: Service Date/Time: September 07:37 - CONCLUSION: Acute appendicitis. Hardik Benito MD Cardiovascular: Regular Lungs: Clear Abdomen: Non-distended, Post-op tenderness Narrative Exam There is an area of erythema around the lower midline wound. The remainder of his abdomen is benign. A/P Assessment and Plan Impression: Postop day #2 status post laparoscopic appendectomy. Plan: In view of his slow return to bowel function a plan to keep him on IV antibiotics for another 24 hours. CBC will be checked in the morning. Baltazar Hood MD Oct 14, 2016 14:53
[2016-10-15] MEDS: LEVOFLOXACIN 750 MG/DEXTROSE 150 ML IV SCH (01:00)
[2016-10-15] MEDS: metroNIDAZOLE 500 MG INJ 100 ML IV SCH ×3 (02:18→14:46)
[2016-10-15] MEDS: ONDANSETRON HCL 4 MG/2 ML VIAL IV PRN (03:01)
[2016-10-15 04:10] VITALS: BP 124/85; PULSE 101; RESP 20; TEMP 98.6; O2SAT 96
[2016-10-15 05:59] LABS: AUTOMATED NEUTROPHIL # 4.9 TH/MM3 (1.8-7.7); BASOPHIL % 0.3 % (0.0-2.0); EOSINOPHIL # 0.5 TH/MM3 (0-0.4); EOSINOPHIL % 6.7 % (0.0-4.0); HEMATOCRIT 39.2 % (39.0-51.0); HEMO FLAGS DIFF FINAL; LYMPH % 10.4 % (9.0-44.0); LYMPHOCYTE # 0.8 TH/MM3 (1.0-4.8); MEAN CELL VOLUME 86.9 FL (80.0-100.0); MEAN CORPUSCULAR HEMOGLOBIN 30.8 PG (27.0-34.0); MEAN CORPUSCULAR HGB CONC 35.5 % (32.0-36.0); MONO % 17.5 % (0.0-8.0); NEUT % 65.1 % (16.0-70.0); PLATELET COUNT 141 TH/MM3 (150-450); RED BLOOD COUNT 4.52 MIL/MM3 (4.50-5.90); RED CELL DISTRIBUTION WIDTH 12.3 % (11.6-17.2); WHITE BLOOD COUNT 7.5 TH/MM3 (4.0-11.0)
[2016-10-15 08:00] VITALS: BP 126/76; PULSE 68; RESP 17; TEMP 97.8; O2SAT 96
[2016-10-15] MEDS: oxyCODONE/ACETAMINOPHEN 10 MG/325 MG TAB PO PRN (08:01)
[2016-10-15] MEDS: SODIUM CHLORIDE 0.9% FLUSH 10 ML FLUSH IV FLUSH SCH (08:02)
[2016-10-15] MEDS: LACTATED RINGER'S 1000 ML INJ 1,000 ML IV SCH (08:05)
[2016-10-15 12:00] VITALS: BP 139/86; PULSE 71; RESP 17; TEMP 97.7; O2SAT 96
--- NOTE | 2016-10-15 13:30 | HHI.PR ---
Subjective Subjective Notes The patient is continuing to pass a large amount of flatus. He's had no bowel movements. He denies any abdominal pain, nausea, or emesis. He is tolerating a regular diet without problem. Objective Vitals/I&O Vital Signs Date Time Temp Pulse Resp B/P Pulse Ox O2 Delivery O2 Flow Rate FiO2 10/15/16 12:00 97.7 71 17 139/86 96 10/14/16 10:35 21 10/12/16 13:00 Room Air 10/12/16 12:00 2 Labs Laboratory Tests Test 10/15/16 03:29 White Blood Count 7.5 Red Blood Count 4.52 Hemoglobin 13.9 Hematocrit 39.2 Mean Corpuscular Volume 86.9 Mean Corpuscular Hemoglobin 30.8 Mean Corpuscular Hemoglobin 35.5 Concent Red Cell Distribution Width 12.3 Platelet Count 141 Mean Platelet Volume 8.7 Neutrophils (%) (Auto) 65.1 Lymphocytes (%) (Auto) 10.4 Monocytes (%) (Auto) 17.5 Eosinophils (%) (Auto) 6.7 Basophils (%) (Auto) 0.3 Neutrophils # (Auto) 4.9 Lymphocytes # (Auto) 0.8 Monocytes # (Auto) 1.3 Eosinophils # (Auto) 0.5 Basophils # (Auto) 0.0 CBC Comment DIFF FINAL Differential Comment Date/Time Procedure Status Source Growth 10/12/16 08:52 Aerobic Blood Culture - Final Complete Blood Peripheral Streptococcus Species 10/12/16 08:52 Anaerobic Blood Culture - Final Complete Strep Anginosus/Milleri Radiology Last Impressions Abdomen/Pelvis CT 10/12/16 0725 Signed Impressions: Service Date/Time: September 07:37 - CONCLUSION: Acute appendicitis. Hardik Benito MD Cardiovascular: Regular Lungs: Clear Abdomen: Non-distended, Post-op tenderness Extremities: No edema Narrative Exam There is an area of erythema around the lower midline wound. The remainder of his abdomen is benign. A/P Assessment and Plan Impression: Postop day # 3 status post laparoscopic appendectomy. He is making an excellent recovery. Plan: The patient will be discharged today on 7 days of Cipro and Flagyl. He should return to see Dr. Ferreira within the next week to 10 days. I told him he can shower and can return to work when he so desires. Baltazar Hood MD Oct 15, 2016 13:30
--- NOTE | 2016-10-15 13:33 | HHI.DS ---
Discharge Summary Admission Date Oct 13, 2016 at 11:28 Discharge Date: Oct 15, 2016 Admitting Diagnosis acute appendicitis, tachycardia Procedures Laparoscopic appendectomy Brief History 26-year-old male presents with 36 hours of vomiting and awoke last night with severe right lower quadrant abdominal pain. He has soreness in his back on both sides. He has been significantly tachycardic in the emergency department. He had a normal white blood count but with 94% left shift. CT abdomen and pelvis was consistent with acute appendicitis. No previous abdominal surgeries. CBC/BMP: 10/15/16 0329 10/12/16 0650 Significant Findings Laboratory Tests Test 10/14/16 10/15/16 03:58 03:29 Red Blood Count 4.21 MIL/MM3 (4.50-5.90) Hematocrit 36.7 % (39.0-51.0) Mean Corpuscular Hemoglobin 36.1 % Concent (32.0-36.0) Platelet Count 120 TH/MM3 141 TH/MM3 (150-450) (150-450) Neutrophils (%) (Auto) 78.4 % (16.0-70.0) Lymphocytes (%) (Auto) 5.3 % (9.0-44.0) Monocytes (%) (Auto) 13.0 % 17.5 % (0.0-8.0) (0.0-8.0) Lymphocytes # (Auto) 0.4 TH/MM3 0.8 TH/MM3 (1.0-4.8) (1.0-4.8) Monocytes # (Auto) 1.0 TH/MM3 1.3 TH/MM3 (0-0.9) (0-0.9) Platelet Estimate LOW (NORMAL) Eosinophils (%) (Auto) 6.7 % (0.0-4.0) Eosinophils # (Auto) 0.5 TH/MM3 (0-0.4) PE at Discharge There is an area of erythema around the lower midline wound. The remainder of his abdomen is benign. Hospital Course The patient was found to have a gangrenous appendix at the time of surgery. He had a relatively slow recovery with return of bowel function over the first 60 hours. At the time of discharge he is doing well with no fever, abdominal pain , nausea, or vomiting. He is not having bowel movements But is passing a large amount of flatus. Pt Condition on Discharge: Good Discharge Disposition: Discharge Home Discharge Instructions DIET: Follow Instructions for: As Tolerated, No Restrictions Activities you can perform: Regular-No Restrictions Baltazar Hood MD Oct 15, 2016 13:33
== END 2016-10-15 16:05 | disposition home or self-care (01) | DRG 343 ==
LOC: NEPE 06:18 → INTOOBSV 08:44 → NEDA 08:44 → N07A 13:19 → OBSVTOIN 10-13 11:28
PROVIDERS: ADMIT Surgery; ATTEND Surgery
PROC: 0DTJ4ZZ Resection of Appendix, Percutaneous Endoscopic Approach (ICD-10-PCS; principal; 2016-10-12 10:07)
DX: K35.80 Unspecified acute appendicitis (principal); R00.0 Tachycardia, unspecified; Z72.0 Tobacco use
CPT/HCPCS: 74177; 80053; 81001; 83690; 85025; 85610; 85730; 87040; 87205; 88304; 94150; 96361; 96374; 96375; C9113; G0378; J0131; J0690; J0692; J1170; J1956; J2175; J2250; J2270; J2370; J2405; J2710; J3010; J7030; J7120; Q9967